=== PATIENT | male | born 1995 | race Caucasian/White ===

== ENCOUNTER 2023-04-09 08:44 | Inpatient (IN) | payer MEDICAID, SELFPAY ==
[2023-04-09] VITALS (9 sets, daily range): BP systolic 104–136; BP diastolic 64–105; PULSE 49–82; RESP 12–20; TEMP 35.4–37.2; O2SAT 92–100; BMI 22.4
--- NOTE | 2023-04-09 08:54 | W.ED.GENAD ---
Discharge Plan Disposition Patient Disposition: Admit to [facility] Discharge Details Chief Complaint: Cellulitis Clinical Impression: Thrombophlebitis arm, Intravenous drug abuse Admit Date/Time: 04/09/23 16:48 Admit Provider: Corina Hall Attending Provider: Corina Hall Primary Care Provider: Jenniffer,Local ED Provider: Shanelle Sadler Discharge Data Discharge Date/Time-TO BE ENTERED AT DEPARTURE: 04/09/23 14:57 Medical Decision Making Patient is a 27 year old male, brought in by correction and in their custody, with c/c of RUE erythema, warmth, concern for abscess. He has hx of IVDU, has used recently, went into custody 4 days ago. States that he has had several abscesses which he typically associated with missed IVDU injection. He states that he has opened these himself in the past. Currently on Subutex, needs his AM dosing. He reports that over the past 24 hours the area has grown significantly as has his pain. He has not had any fevers or chills. Denies any spreading to the anterior aspect of his chest, no shortness of breath or chest pain. On exam, patient appears nontoxic. His vital signs are stable. He has a large area of erythema in the anterior aspect of the Upper arm primarily centered over the bicep. Area is firm centrally had any concern for abscess. While he is tender away from this including medially as well as extending proximally, but erythema and fluctuance does not. No pain, erythema, induration or fluctuance on chest wall. Explored area with US, while abscess is visualized, as expected, the vein in this region appears to have clot burden as well. Concerned for septic thrombus. ED physician confirmed my concern on US. Will obtain labs, keep NPO, obtain CT and consult with surgery. Will begin on zosyn and vanco. Hydrating th epatient. Will give his typical dosing of Subutex, dose confirmed by RN at [facility]. Glucose is low at 66. Hesitant to give PO utnil we have plan after CT, will give 25mg IV dextrose FINDINGS: Bones/joints: There is a 2.5 cm x 2.1 cm x 1.7 cm rim-enhancing fluid density structure in the deep subcutaneous fat of the medial mid right upper arm (at the level of the mid humerus, measured on series 3, image 98 and coronal image 43). This is consistent with the clinically suspected abscess. There is thrombus within a superficial vein in the medial upper arm immediately adjacent to this collection (see series 3, images 85-113 and coronal images 39-46). A small amount of eccentric nonocclusive thrombus is seen proximally, as well. There is extensive subcutaneous fat stranding throughout the right upper arm, which can be seen with edema and/or cellulitis. Multiple mildly enlarged right axillary lymph nodes and enlarged lymph nodes in the right supraclavicular region and right antecubital fossa are nonspecific though suspected to be reactive. Soft tissues: No fractures or suspicious osseous lesions. Alignment in the right shoulder and right elbow are anatomic. IMPRESSION: 1. ? A 2.5 cm x 2.1 cm x 1.7 cm rim-enhancing fluid collection in the medial mid right upper arm is consistent with the clinically suspected abscess. 2. ? Superficial thrombophlebitis is adjacent and just proximal to the right upper arm abscess. 3. ? Extensive subcutaneous fat stranding throughout the right upper arm, which can be seen with cellulitis and/or edema. 4. ? Right axillary, right supraclavicular and right antecubital fossa lymphadenopathy is nonspecific though presumed to be reactive. WBC elevated, lactate WNL Consulted with surgery, plan is for removal in the OR. Surgeon at bedside, she discussed procedure with patient, obtained consent. Patient to OR with Dr. Hall with plan for admission for continued IV abx. [facility] General Date/Time Provider Initiated Documentation: 04/09/23 08:54. Limitations to Documentation: no limitations. Information obtained by: patient, RN/MD (call from RN at [facility]) and RN notes reviewed. History of Present Illness 27 year old M presents to the emergency department with the chief complaint of abscess right upper arm, described as severe and similar to prior episodes, with intensity rated at 8. Quality is described as aching and sharp, and is localized to the right and upper extremity. Patient reports no radiation. Patient started experiencing this day(s) and it has been constant. No relieving factors improve symptom(s), Movement worsens symptoms . Patient notes malaise; denies chest pain, cough, diaphoresis, fever/chills and shortness of breath. Patient did receive the following treatments prior to arrival, none Related Data Home Medications Medication Instructions Recorded Confirmed buprenorphine HCl 8 mg sublingual 16 mg sublingual DAILY 04/09/23 04/09/23 tablet Allergies Allergy/AdvReac Type Severity Reaction Status Date / Time vancomycin Allergy Intermediate rash Verified 04/10/23 14:51 Review of Systems Constitutional Constitutional: Reports as per HPI, Denies chills and Denies fever(s) Cardiovascular Cardiovascular: Denies chest pain and Denies dyspnea Respiratory Respiratory: Denies cough, Denies pain on inspiration and Denies dyspnea Musculoskeletal Musculoskeletal: Reports as per HPI Integumentary/Breasts Skin/Breast: Reports as per HPI Neurologic Neurologic: Reports as per HPI, Denies sensory deficit and Denies paresthesias PFSH All Active Problems (Updated 04/11/23 @ 09:39 by SHAHEED Armendariz) Smoker (Acute) Intravenous drug abuse (Acute) Thrombophlebitis arm (Acute) Abscess of right upper extremity (Acute) Social History Smoking/Tobacco Use Status: Former Tobacco Use Smoking risk assessment performed?: Yes Substance use type: IV drugs Details: last use 6 days ago - fentanyl Housing: other Exam Const General: cooperative, healthy appearing, comfortable, no acute distress and well developed Nutritional Appearance: average body habitus and well nourished Orientation: alert and awake Neck Neck: normal visual inspection and no lymphadenopathy Chest Chest: normal inspection of the chest, normal palpation of entire chest wall, no crepitus and no tenderness Resp Effort & Inspection: normal respiratory effort, able to speak in complete sentences and no respiratory distress Auscultation: clear to auscultation bilaterally Cardio Rate: regular rate Rhythm: regular rhythm Heart Sounds: S1 normal and S2 normal Skin General skin exam: erythema and induration Neuro General: patient alert and patient awake Cognition: normal cognition Speech: speech normal Gait: normal gait Sensory Exam: no sensory deficits noted Extrem Shoulder/upper arm images: 1. Area of erythema. Centrally, area is fluctuant with surrounding induration. While the erythema is confined with no streaking, the area around this is tender to palpation. No palpable lymphadenopathy. 2+ distal pulses. Sensation intact. No open area or discharge.
[2023-04-09 09:54] LABS: Lactate 1.4 mmol/L (0.6-1.4)
[2023-04-09 09:56] LABS: Abs Immature Grans 0.15 10^3/uL (0.0-0.06); Absolute Basophil Count 0.09 10^3/uL (0.0-0.2); Absolute Eosinophil Count 0.42 10^3/uL (0.0-0.7); Absolute Lymphocyte Count 1.75 10^3/uL (1.2-3.4); Absolute Monocyte Count 1.19 10^3/uL (0.1-0.8); Absolute Neutrophil Count 13.86 10^3/uL (1.2-6.7); Basophils % 0.5; Eosinophils % 2.4; HCT 45.3 % (40.0-50.0); HGB 14.2 g/dL (13.5-17.5); Immature Grans % 0.9; MCHC 31.3 % (32.0-36.0); MCV 86 fL (80-95); MPV 10.1 fL (8.0-11.0); Monocytes % 6.8; Neutrophils % 79.4; Platelet Count 330 10^3/uL (130-400); RBC 5.26 10^6/uL (4.36-5.78); RDW 13.7 % (11.8-14.1); RDW-SD 43.7 fL; WBC 17.46 10^3/uL (4.4-10.8)
[2023-04-09] MEDS: ACETAMINOPHEN 1,000 MG/100 ML BTL 400 MG IVPB (09:57)
[2023-04-09] MEDS: Lactated Ringers 1,000 ML 1000 ML IV (09:57)
[2023-04-09 10:24] LABS: ALT 14 U/L (16-63); AST 9 U/L (15-37); Alkaline Phosphatase 78 U/L (46-116); Anion Gap 3.5 mmol/L (3-11); BUN 13 mg/dL (7-18); Bilirubin, Total 0.4 mg/dL (0.2-1.0); CO2 35.5 mmol/L (21.0-32.0); Calcium 9.2 mg/dL (8.5-10.1); Chloride 102 mmol/L (98-107); Estimated GFR 105.79 (mL/min/1.73m2); Glucose 66 mg/dL (74-106); Magnesium 1.8 mg/dL (1.8-2.4); Potassium 4.1 mmol/L (3.5-5.1); Sodium 141 mmol/L (136-145); Total Protein 7.2 g/dL (6.4-8.2)
[2023-04-09] MEDS: Omnipaque 350 MG/ML 100 ML BTL IJ (10:49)
[2023-04-09] MEDS: Dextrose 50%-Water 25 GM/50 ML SYR IVP (10:55)
[2023-04-09] MEDS: Normal Saline - Diluent 50 ML VIAL IJ (10:56)
[2023-04-09] MEDS: PIPERACILLIN/TAZO 3.375 GM in Normal Saline 50 ML IVPB ×3 (11:00→23:17)
--- NOTE | 2023-04-09 11:05 | DI.CT_ITS ---
Exam(s) CT UPPER EXTREMITY RT W EXAM: CT UPPER EXTREMITY RT W CLINICAL HISTORY: abscess right upper arm TECHNIQUE: Imaging Protocol: Axial computed tomography images with coronal and sagittal reformatted images were created and reviewed. CONTRAST MATERIAL: Intravenous: Omnipaque 350 Contrast volume:structured data in ml Contrast route:I V - Oral: yes / no COMPARISON: No exams were available for comparison FINDINGS: SOFT TISSUES: There is a peripherally enhancing abnormal fluid collection in the anterior medial aspe ct of the upper arm consistent with abscess. This measures approximately 2.7 x 2 x 1.8 cm. There al so appears to be an element of superficial thrombophlebitis in adjacent veins. There is also extensi ve subcutaneous stranding throughout the upper arm. There are slightly enlarged lymph nodes in the i psilateral right axilla which are probably reactive. Bones: No fractures. No evidence of osteomyelitis. IMPRESSION: Findings are consistent with an abscess in the upper medial right arm and also appears to be adjacent superficial thrombophlebitis. There is also extensive subcutaneous fat stranding consistent with edema and cellulitis. Reactive ipsilateral axillary adenopathy noted. RADIATION DOSE DELIVERED: 453.47mGy.cm Total DLP DATA REPOSITORY: All CT scans at this facility are submitted to the National Radiology Data Registry (NRDR) Dose Index Registry (DIR) with the [employer] ([employer]). RADIATION OPTIMIZATION: All CT scans at this facility use at least one of these dose optimization te chniques: automated exposure control; mA and/or kV adjustment per patient size (includes targeted exa ms where dose is matched to clinical indication); or iterative reconstruction.
--- NOTE | 2023-04-09 11:34 | DI.VRAD_ITS ---
PROCEDURE INFORMATION: Exam: CT Right Upper Extremity With Contrast, Upper Arm Exam date and time: 04/09/2023 10:52 AM Age: 27 years old Clinical indication: Swelling; Upper limb; Upper arm; Patient HX: ? Abscess right arm, pain since yesterday. TECHNIQUE: Imaging protocol: Computed tomography of the right upper extremity with contrast. Exam focused on the upper arm. Radiation optimization: All CT scans at this facility use at least one of these dose optimization techniques: automated exposure control; mA and/or kV adjustment per patient size (includes targeted exams where dose is matched to clinical indication); or iterative reconstruction. Contrast material: OMNIPAQUE 350; Contrast volume: 100 ml; Contrast route: INTRAVENOUS (IV); COMPARISON: No relevant prior studies available. FINDINGS: Bones/joints: There is a 2.5 cm x 2.1 cm x 1.7 cm rim-enhancing fluid density structure in the deep subcutaneous fat of the medial mid right upper arm (at the level of the mid humerus, measured on series 3, image 98 and coronal image 43). This is consistent with the clinically suspected abscess. There is thrombus within a superficial vein in the medial upper arm immediately adjacent to this collection (see series 3, images 85-113 and coronal images 39-46). A small amount of eccentric nonocclusive thrombus is seen proximally, as well. There is extensive subcutaneous fat stranding throughout the right upper arm, which can be seen with edema and/or cellulitis. Multiple mildly enlarged right axillary lymph nodes and enlarged lymph nodes in the right supraclavicular region and right antecubital fossa are nonspecific though suspected to be reactive. Soft tissues: No fractures or suspicious osseous lesions. Alignment in the right shoulder and right elbow are anatomic. IMPRESSION: 1. A 2.5 cm x 2.1 cm x 1.7 cm rim-enhancing fluid collection in the medial mid right upper arm is consistent with the clinically suspected abscess. 2. Superficial thrombophlebitis is adjacent and just proximal to the right upper arm abscess. 3. Extensive subcutaneous fat stranding throughout the right upper arm, which can be seen with cellulitis and/or edema. 4. Right axillary, right supraclavicular and right antecubital fossa lymphadenopathy is nonspecific though presumed to be reactive. Dictated and Authenticated by: Marianne Portillo MD. Ordering:ANTHONY Timmons MD
[2023-04-09] MEDS: VANCOMYCIN/WATER (PEG) 1.5 GM/300 ML BAG IVPB (11:35)
[2023-04-09] MEDS: Normal Saline 1,000 ML 500 ML IV (12:44)
[2023-04-09 13:35] LABS: Procalcitonin < 0.1 ng/mL
--- NOTE | 2023-04-09 13:56 | W.PM.HP.N ---
Date of service: 04/09/23 Time of Service: 13:56 Assessment and Plan Assessment and plan (1) Abscess of right upper extremity: Status: Acute Assessment and plan: - Patient will need to go to the OR for incision and drainage of the abscess and excision of the vein. He will need to be in the hospital for several days for IV antibiotics and work-up for endocarditis. Risks include but not limited to: Bleeding, infection, pneumonia, blood clots, complication of anesthesia. There is risk of chronic pain/chronic numbness/scarring/loss of motor function/scarring. He may need further debridements and washouts. He will need to do packing and dressing changes. The wound will need to heal by secondary intent which can take weeks to months. He is at high risk for developing endocarditis. Blood cultures are pending. He has never had anesthesia before. He will be admitted postop for IV antibiotics and further work-up for endocarditis. Patient has also developed diffuse pruritus since he received his antibiotics. Most likely this is from the Vanco. (2) Thrombophlebitis arm: Status: Acute (3) Intravenous drug abuse: Status: Acute (4) Smoker: Status: Acute History of Present Illness Narrative: Eliazar Escalona is a 27-year-old white male seen at the request of Dr. Alejo ER regarding a right forearm abscess and thrombophlebitis. He has a history of IVDA. The last time he injected was 6 days ago per the patient. He has been in custody of [employer] for the last 4 days. He has been on Suboxone since he has been in [facility]. In the last 24 hours he has developed pain redness and obvious abscess in the right upper forearm. He was injecting in this arm. He denies there being a needle or any other foreign body in place. On POCUS exam there is a obvious abscess. The vein is clotted. And most likely infected. He denies a history of MRSA. He denies a history of prior infections. He complains of local pain in the area.. He is ever able to move his fingers without any motor deficits he has no numbness or tingling in his hands or fingers.. He denies any chest pain or shortness of breath. He denies any productive cough. He to the best of his knowledge she is HIV and hep C negative. He smokes a pack a day. He denies any other medical problems He has never had surgery or anesthesia in the past. Review of Systems All systems reviewed & are unremarkable except as noted in HPI and below PFSH All Active Problems (Updated 04/09/23 @ 13:57 by Corina Hall DO) Smoker (Acute) Intravenous drug abuse (Acute) Thrombophlebitis arm (Acute) Abscess of right upper extremity (Acute) Social History Smoking risk assessment performed?: No Substance use type: IV drugs Details: last use 6 days ago - fentanyl Housing: other Meds Allergies and Home Medications Home Medications Medication Instructions Recorded Confirmed Type buprenorphine HCl 8 mg sublingual 16 mg sublingual DAILY 04/09/23 04/09/23 History tablet Exam Const General: cooperative and anxious Nutritional Appearance: average body habitus Orientation: alert, awake and oriented x3 Other: PHYSICAL EXAM GENERAL APPEARANCE: Alert, healthy appearance, oriented, x 3,? in no acute distress HYDRATION: Well hydrated HEAD, EYES, EARS, NECK, THROAT: Head is normocephalic, pupils equal, round, reactive to light and accommodation, ocular movement intact, sclera clear and no jaundice. ?Dentition intact. No sore throat.? No jaw pain. No thrush LUNGS: normal respiration/normal chest excursion. ?Clear to auscultation bilaterally. ?No wheeze. ?HEART: Regular rate and rhythm. no murmurs EXTREMITY: No edema or cyanosis.? no leg pain, redness, swelling.? Right forearm: He has a large 3 x 3 inch area of induration and tenderness and edema on the upper outer mid forearm. CT shows a 3 x 3 inch abscess. Patient denies there being any foreign body in there. Ultrasound shows that the vein is clotted and most likely has thrombophlebitis he has track quinones and significant scarring on his arms from prior injecting. They were able to obtain IV access in the left arm. He also has scarring and looks like he is a cutter as well ABDOMEN: soft and non-tender to palpation.? Normal bowel sounds.? Results Labs 04/09/23 09:44 04/09/23 09:44 Labs: Laboratory Results - last 24 hr 04/09/23 04/09/23 04/09/23 09:44 09:44 09:44 WBC 17.46 H RBC 5.26 Hgb 14.2 Hct 45.3 MCV 86 MCH 27.0 MCHC 31.3 L RDW 13.7 Plt Count 330 MPV 10.1 Immature Gran % 0.9 Neutrophils % 79.4 Lymphocytes % 10.0 Monocytes % 6.8 Eosinophils % 2.4 Basophils % 0.5 Nucleated RBC % 0.0 Absolute Neutrophils 13.86 H Absolute Lymphocytes 1.75 Absolute Monocytes 1.19 H Absolute Eosinophils 0.42 Absolute Basophils 0.09 VBG Lactate 1.4 Sodium 141 Potassium 4.1 Chloride 102 Carbon Dioxide 35.5 H Anion Gap 3.5 BUN 13 Creatinine 1.0 Est GFR (CKD-EPI 2020) 105.79 Glucose 66 L Calcium 9.2 Magnesium 1.8 Total Bilirubin 0.4 AST 9 L ALT 14 L Alkaline Phosphatase 78 Total Protein 7.2 Albumin 3.0 L Procalcitonin 04/09/23 09:45 WBC RBC Hgb Hct MCV MCH MCHC RDW Plt Count MPV Immature Gran % Neutrophils % Lymphocytes % Monocytes % Eosinophils % Basophils % Nucleated RBC % Absolute Neutrophils Absolute Lymphocytes Absolute Monocytes Absolute Eosinophils Absolute Basophils VBG Lactate Sodium Potassium Chloride Carbon Dioxide Anion Gap BUN Creatinine Est GFR (CKD-EPI 2020) Glucose Calcium Magnesium Total Bilirubin AST ALT Alkaline Phosphatase Total Protein Albumin Procalcitonin < 0.1 Last Vital Signs Temp 37.2 C 04/09/23 08:52 Pulse 82 04/09/23 08:52 Resp 20 04/09/23 08:52 BP 122/80 04/09/23 08:52 Pulse Ox 92 04/09/23 08:52 Time Spent Time spent with Patient: >75 minutes Time was spent: preparing to see the patient(eg.review tests), obtaining and/or reviewing separately otained hiistory, ordering medications,tests, procedures, referring, communicating with other health patient centered care specialist, indepentently interpreting results, counseling the patient and care coordination
--- NOTE | 2023-04-09 14:18 | ANES.PREOP_ITS ---
General Info Date of Service Date Performed: 04/09/23 Height: 5 ft 11 in Weight: 73 kg Body Mass Index (BMI): 22.4 Meds Allergies and Home Medications Home Medication Medication Instructions Recorded buprenorphine HCl 8 mg sublingual 16 mg sublingual DAILY 04/09/23 tablet Current Visit Medications: Current Medications Generic Name Dose Route Start Last Admin Trade Name Richq PRN Reason Stop Dose Admin Diphenhydramine HCl 25 mg 04/09/23 14:07 Diphenhydramine 50 Mg/Ml Vial IVP 04/09/23 14:08 NOW ONE Sodium Chloride 1,000 mls @ 500 mls/hr 04/09/23 12:30 04/09/23 12:44 Saline 1000ml Bag IV 04/09/23 14:29 500 mls/hr BOLUS ONE Administration IV Miscellaneous Supplies 1 each 04/09/23 09:45 Iv Access-Emergency Dept IV DIRECTED RHONDA Iohexol 100 ml 04/09/23 11:00 04/09/23 10:49 Omnipaque 350 Mg/Ml 100 Ml Btl IJ 05/09/23 23:59 100 ml DIRECTED RHONDA Administration Sodium Chloride 0 ml 04/09/23 09:31 Normal Saline Flush 10 Ml Syr IVP PRN PRN Sodium Chloride 50 ml 04/09/23 11:00 04/09/23 10:56 Normal Saline - Diluent 50 Ml Vial IJ 50 ml .FOR DI USE RHONDA Administration PFSH Active Problems Active Problems: Problem Status Onset Code Smoker F17.200 Intravenous drug abuse F19.10 Thrombophlebitis arm I80.8 Abscess of right upper extremity L02.413 Substance Use Substance use type: IV drugs Details: last use 6 days ago - fentanyl Vital Signs and Lab Results Vital Signs Most Recent Vital Signs in EMR: Most Recent Vital Signs Temp Pulse Resp BP Pulse Ox 37.2 C 82 20 122/80 92 04/09/23 08:52 04/09/23 08:52 04/09/23 08:52 04/09/23 08:52 04/09/23 08:52 Lab Results 04/09/23 09:44 04/09/23 09:44 Blood Type / Crossmatch: No Data to Display Complete Blood Count: White Blood Count 17.46 10^3/uL (4.4-10.8) H 04/09/23 09:44 Red Blood Count 5.26 10^6/uL (4.36-5.78) 04/09/23 09:44 Hemoglobin 14.2 g/dL (13.5-17.5) 04/09/23 09:44 Hematocrit 45.3 % (40.0-50.0) 04/09/23 09:44 Platelet Count 330 10^3/uL (130-400) 04/09/23 09:44 Venous Blood Lactate 1.4 mmol/L (0.6-1.4) 04/09/23 09:44 Complete Metabolic Panel: Sodium 141 mmol/L (136-145) 04/09/23 09:44 Potassium 4.1 mmol/L (3.5-5.1) 04/09/23 09:44 Chloride 102 mmol/L (98-107) 04/09/23 09:44 Carbon Dioxide 35.5 mmol/L (21.0-32.0) H 04/09/23 09:44 BUN 13 mg/dL (7-18) 04/09/23 09:44 Creatinine 1.0 mg/dL (0.70-1.30) 04/09/23 09:44 Est GFR (CKD-EPI 2020) 105.79 (mL/min/1.73m2) 04/09/23 09:44 Magnesium 1.8 mg/dL (1.8-2.4) 04/09/23 09:44 Calcium 9.2 mg/dL (8.5-10.1) 04/09/23 09:44 Albumin 3.0 g/dL (3.4-5.0) L 04/09/23 09:44 Glucose 66 mg/dL (74-106) L 04/09/23 09:44 Liver Function Panel: Alanine Aminotransferase (ALT/SGPT) 14 U/L (16-63) L 04/09/23 0 9:44 Aspartate Amino Transf (AST/SGOT) 9 U/L (15-37) L 04/09/23 09:4 4 Coagulation Panel: No Data to Display Cardiac Panel: No Data to Display Arterial Blood Gas: No Data to Display Venous Blood Gas: No Data to Display Pancreas Panel: No Data to Display Thyroid Panel: No Data to Display Infectious Disease: HIV (1&2) Ag and Ab, 4th Generation Pending 04/09/23 09: 45 Hepatitis B Surface Antigen Pending 04/09/23 09:45 Hepatitis C Antibody Pending 04/09/23 09:45 Blood Cultures: No Data to Display Toxicology Panel: No Data to Display Anesthesia Assessment and Plan Anesthesia History Personal History: No History of Anesthesia Complications Family History: No Family History of Anesthesia Complications Exercise Tolerance Exercise Tolerance: Metabolic Equivalents>4 Pertinent Negatives Pertinent Negatives: No Major Cardiovascular Symptoms or Complaints, No Major Pulmonary Symptoms or Complaints and No History of CVA/TIA Cardiac & Pulmonary Exam Cardiac Exam: Normal S1/S2 Heart Sounds Pulmonary Exam: Clear Bilateral Breath Sounds Implantable Cardiac Device Does patient have a Pacemaker or an ICD?: No Airway Exam Known Difficult Airway: No Mallampati Class: 2 Mouth Opening: Normal (> 3cm) Thyromental Distance: Greater than 3 cm Neck Range of Motion: Full ROM Neck Circumference: Normal Teeth Condition: Normal Dentition ASA Classification ASA Score: ASA 2 Emergency Case?: Yes NPO Status NPO Status: NPO Clears >2 hours, Solids >8 hours Anesthesia Plan Resuscitation Status: Full Code Anesthesia Technique: General Anesthesia Airway Planned: Endotracheal Tube Monitors Used: Standard Monitors
[2023-04-09] MEDS: diphenhydrAMINE 50 MG/ML VIAL 25 MG IVP (14:44)
[2023-04-09] MEDS: Lactated Ringers 1,000 ML 30 ML IV (15:09)
[2023-04-09] MEDS: Bupivacaine LIPOSOME/PF 133 MG/10 ML VIAL IJ (15:46)
--- NOTE | 2023-04-09 15:56 | VEI_PTH ---
PATIENT: Eliazar Escalona LOC: [id number]#:[id number] AGE/SX: 27/M ROOM: MS.206 RE04/09/[address]: Corina Hall : 1995 BED: A DIS: 04/12/2023 SPEC #: [id number] RECD: 04/11/23 12:17 STATUS: SUSAN REQ #: [id number] YASMEEN: 04/09/23 15:[address]: Corina Hall DEPT: Surgical Specimen RECD BY: Radha Tavarez ENTERED: 04/11/23 12:21 SP TYPE: JOSH REEVES DR: No Local Tissues: 1 - VEINS OF UPPER EXTREMITY, NOS Procedures: GROSS AND MICRO LEVEL 3 Comments: [id number]
[2023-04-09] MEDS: Bupivacaine 0.25% Pres-Free 30 ML VIAL (15:59)
--- NOTE | 2023-04-09 16:22 | ROE_ITS ---
Date of service: 04/09/23 Time of Service: 16:22 Operative Note Operative Note DATE OF PROCEDURE: 04/09/23 PRE-OP DIAGNOSIS: right upper arm abscess and thrombophlebitis of C. vein POST-OP DIAGNOSIS: same SURGEON: Corina Hall BLOCK CHOPPER HAND: Arnold Jang ANESTHESIA TYPE: Local By Surgeon and General LMA/ETT Refer to Anesthesia Record ESTIMATED BLOOD LOSS: 20 PATHOLOGY: other COMPLICATIONS: None Patient was transported to: PACU Patient's condition: stable Procedure Description: Patient has a history of IVDA and is developed an abscess and thrombophlebitis of the right cephalic vein the midportion of the upper arm. He requires incision and drainage of the abscess and the infected vein and this area. Informed consent is obtained explaining risks and benefits of the procedure including not limited to: Bleeding, infection, pneumonia, blood clots, anesthesia chronic pain or numbness. Loss of motor control. Scarring, need to heal by secondary intent and dressing changes versus skin grafting need for further debridement and other on for told complications. The site is marked. Patient is brought to the operative room suite and placed in the supine position . Anesthesia is administered per the department of anesthesia. Patient had received preop antibiotics. Patient is prepped and draped in the usual sterile using a ChloraPrep scrub solution. A timeout is performed. 30cc of quarter percent Marcaine solution is used for local anesthetization. A 3 inch incision is made over the apex of the abscess. Cultures are taken. About 100 cc of purulent material is evacuated. Electrocautery was used to provide hemostasis. The cavity is about 3 x 3 x 1 inches. Saline is used to irrigate the cavity. And curette is used to remove all necrotic tissue. The cephalic vein is isolated and dissected up in the subcutaneous tissues. Clips are applied proximally and distally into all branches. The vein is then excised and sent for pathology. Gelfoam is used to aid in hemostasis. It is irrigated with 2 L of saline. There is no significant bleeding noted. Is then packed with wet-to-dry gauze. Sterile compression dressing is applied. Patient tolerated procedure well without complication and transferred to cover room stable condition. Corrections officers remain with the patient throughout the entirety of the procedure, his preop and postoperative states. We will plan on dressing change under anesthesia in a.m.
--- NOTE | 2023-04-09 16:23 | W.PM.PROGNOT ---
Date of Service Date of service: 04/09/23 Time of Service: 17:30 Assessment and Plan Assessment and plan (1) Smoker: Status: Acute (2) Intravenous drug abuse: Status: Acute (3) Thrombophlebitis arm: Status: Acute Assessment and plan: The patient is doing well post-op. Their pain is well controlled. They are having no nausea or vomiting. The pt is not having any chest pain or SOB, productive cough; no calf pain or swelling. The pt is making good urine. The pt pain is adequately controlled. The case was discussed with nursing and patient?s progress reviewed. All of the pt's home medications were addressed and adjusted accordingly for their oral intact status. HEENT: no jaundice. no eye pain/drainage/redness/swelling. Mild sore throat Cardio- NSR no chest pain, BP stable. Pulm: no sob or productive cough. no hemoptysis Incision- clean/dry. Dressing intact no excessive bleeding or drainage I discussed with the patient and/or there family about the findings in surgery and the pt's progress. We reviewed expectations for progress in the hospital; what the pt could expect for recovery time and length of stay. We discussed the importance of walking and pulmonary toilet to avoid blood clots and pneumonia. Continue current plans for pulmonary toilet, GI and DVT prophylaxis. We shall continue the current plan for pain management as it is at an appropriate level, and working well for the pt. Appropriate measures will be taken for constipation prevention, and this was also reviewed with the pt. The wound care plan was reviewed with nursing as well. We will plan on doing dressing change under anesthesia in the OR in the morning. I do not think patient would tolerate a bedside dressing change. Patient also has a reddened fluctuant area on the left biceps region as well. However once we removed the IV so that the fluid was not flowing through this area it looks better. I am hoping that this area will respond to antibiotics. If not then we may have to do a I&D on the site as well. see orders (4) Abscess of right upper extremity: Status: Acute Objective Last Vital Signs Temp 37.2 C 04/09/23 08:52 Pulse 82 04/09/23 08:52 Resp 20 04/09/23 08:52 BP 122/80 04/09/23 08:52 Pulse Ox 92 04/09/23 08:52 Laboratory Results - last 24 hr 04/09/23 04/09/23 04/09/23 09:44 09:44 09:44 WBC 17.46 H RBC 5.26 Hgb 14.2 Hct 45.3 MCV 86 MCH 27.0 MCHC 31.3 L RDW 13.7 Plt Count 330 MPV 10.1 Immature Gran % 0.9 Neutrophils % 79.4 Lymphocytes % 10.0 Monocytes % 6.8 Eosinophils % 2.4 Basophils % 0.5 Nucleated RBC % 0.0 Absolute Neutrophils 13.86 H Absolute Lymphocytes 1.75 Absolute Monocytes 1.19 H Absolute Eosinophils 0.42 Absolute Basophils 0.09 VBG Lactate 1.4 Sodium 141 Potassium 4.1 Chloride 102 Carbon Dioxide 35.5 H Anion Gap 3.5 BUN 13 Creatinine 1.0 Est GFR (CKD-EPI 2020) 105.79 Glucose 66 L Calcium 9.2 Magnesium 1.8 Total Bilirubin 0.4 AST 9 L ALT 14 L Alkaline Phosphatase 78 Total Protein 7.2 Albumin 3.0 L Procalcitonin 04/09/23 09:45 WBC RBC Hgb Hct MCV MCH MCHC RDW Plt Count MPV Immature Gran % Neutrophils % Lymphocytes % Monocytes % Eosinophils % Basophils % Nucleated RBC % Absolute Neutrophils Absolute Lymphocytes Absolute Monocytes Absolute Eosinophils Absolute Basophils VBG Lactate Sodium Potassium Chloride Carbon Dioxide Anion Gap BUN Creatinine Est GFR (CKD-EPI 2020) Glucose Calcium Magnesium Total Bilirubin AST ALT Alkaline Phosphatase Total Protein Albumin Procalcitonin < 0.1 Time Spent with Patient Time Spent with Patient: <25 minutes Time was spent: preparing to see the patient(eg.review tests), obtaining and/or reviewing separately otained hiistory, ordering medications,tests, procedures, referring, communicating with other health resident care assistant, indepentently interpreting results, counseling the patient and care coordination
--- NOTE | 2023-04-09 16:54 | W.ANESPOSTOP ---
Postoperative Evaluation Date, Time and Location Date Performed: 04/09/23 Time Performed: 16:47 Patient Location: PACU Vital Signs Most Recent Imported Vital Signs: Most Recent Vital Signs Temp Pulse Resp BP Pulse Ox 36.5 C 58 L 15 136/105 H 100 04/09/23 16:46 04/09/23 16:46 04/09/23 16:46 04/09/23 16:46 04/09/23 16:46 Pain Score Most Recent Pain Score: Most Recent Pain Score Pain Level 8 04/09/23 08:52 Assessment Mental Status: Awake (Alert & Oriented to Patient Baseline) Airway and Respiratory Function: Patent airway with normal (patient baseline) respiratory exam Cardiovascular Function: Hemodynamically Stable Hydration Status: Adequately Hydrated Nausea & Vomiting: No Nausea or Vomiting Pain: Pt. Denies Any Pain Peripheral Nerve Block: Patient did not receive a nerve block
[2023-04-09] MEDS: Acetaminophen 500 MG TAB 1000 MG PO ×2 (17:14→23:18)
[2023-04-09] MEDS: Enoxaparin 40 MG/0.4 ML SYR SC (17:15)
[2023-04-09] MEDS: Normal Saline 1,000 ML 100 ML IV (20:51)
[2023-04-10] MEDS: PIPERACILLIN/TAZO 3.375 GM in Normal Saline 50 ML IVPB ×3 (06:07→17:25)
[2023-04-10] MEDS: Acetaminophen 500 MG TAB 1000 MG PO ×3 (06:07→17:24)
[2023-04-10] MEDS: Normal Saline 1,000 ML 100 ML IV (06:47)
[2023-04-10 07:01] LABS: Abs Immature Grans 0.14 10^3/uL (0.0-0.06); Absolute Basophil Count 0.07 10^3/uL (0.0-0.2); Absolute Eosinophil Count 0.67 10^3/uL (0.0-0.7); Absolute Lymphocyte Count 1.91 10^3/uL (1.2-3.4); Absolute Monocyte Count 0.76 10^3/uL (0.1-0.8); Absolute Neutrophil Count 7.25 10^3/uL (1.2-6.7); Basophils % 0.6; Eosinophils % 6.2; HGB 13.1 g/dL (13.5-17.5); Immature Grans % 1.3; Lymphocytes % 17.7; MCH 26.8 pg (27.0-33.0); MCHC 31.2 % (32.0-36.0); MCV 86 fL (80-95); MPV 10.4 fL (8.0-11.0); Neutrophils % 67.2; Platelet Count 289 10^3/uL (130-400); RBC 4.88 10^6/uL (4.36-5.78); RDW 13.8 % (11.8-14.1); RDW-SD 43.3 fL
[2023-04-10 07:25] VITALS: BP 118/65; PULSE 52; RESP 16; TEMP 36.7; O2SAT 98
[2023-04-10] MEDS: Ketorolac 10 MG TAB PO ×3 (09:25→22:14)
--- NOTE | 2023-04-10 10:35 | INITIAL_ITS ---
Date of service: 04/10/23 Time of Service: 10:35 Care Management Initial Assmt Initial Assessment REASON FOR HOSPITALIZATION:: Abscess of Right Upper Extremity PREVIOUS FUNCTIONAL STATUS/SOCIAL/FAMILY SUPPORTS:: Eliazar is from [place], [place], and was homeless prior to being incarcerated at the [facility]. He is and has 4 children ranging in age from 1 1/2 to 12 years old. Eliazar underwent surgery yesterday for an abscess of his right upper arm. He will require several days of IV antibiotics and a work-up for endocarditis before he can be discharged back to the [facility]. Eliazar is independent at baseline. CURRENT FUNCTIONAL STATUS:: Eliazar is sitting up in bed when CM comes to meet with him. There are two [facility] guards in plain clothes present in his room. Eliazar shares he has a meeting scheduled with his installment account checker next week and inquires if the installment account checker can come to the hospital for the meeting. One of the [facility] guards interjects, stating that is not allowed. Has patient been provided with info about the portal/API?: No Did the patient sign up for the portal?: No CODE STATUS:: Full Code INSURANCE COVERAGE / FINANCIAL ISSUES:: [facility] CURRENT HOME/COMMUNITY SERVICES/EQUIPMENT:: None PRIMARY CARE PHYSICIAN:: Marj Hernandez DNP ([facility]) POTENTIAL DISCHARGE NEEDS:: Follow up appointments with [facility] medical staff and with [facility]. PATIENT/FAMILY EDUCATION NEEDS:: Review of discharge instructions including medications, limitations and follow up plan of care; discuss Ask Me [employer] and self management. ANTICIPATED BARRIERS TO DISCHARGE:: None. TRANSPORTATION:: Via facility van with [facility] staff. PLAN:: Eliazar will return to the [facility] when medically cleared by medical provider. He will follow up with [facility] medical staff, [facility] and plan of care as instructed. He will be transported back to the [facility] by [facility] staff via facility van when ready. CM will continue to follow. PFSH All Active Problems (Updated 04/09/23 @ 13:57 by Corina Hall DO) Smoker (Acute) Intravenous drug abuse (Acute) Thrombophlebitis arm (Acute) Abscess of right upper extremity (Acute) Social History Smoking/Tobacco Use Status: Former Tobacco Use Smoking risk assessment performed?: Yes Substance use type: IV drugs Details: last use 6 days ago - fentanyl Housing: other
--- NOTE | 2023-04-10 11:24 | ANES.PREOP_ITS ---
General Info Date of Service Date Performed: 04/10/23 Height: 5 ft 11 in Weight: 73 kg Body Mass Index (BMI): 22.4 Surgical Procedure: Operation Date: 04/09/23 14:25 Proposed Procedure Side Surgeon p Debridement Right Corina Hall, DO Actual Procedure Side Surgeon p Irrigation + Debridement of Right Upper Arm Abscess + Cephalic Vein Excision Right Corina Hall, Pre-Op Diagnosis Post-Op Diagnosis ABSCESS OF RIGHT UPPER ARM ABSCESS OF RIGHT UPPER ARM Operation Date: 04/10/23 09:05 Proposed Procedure Side Surgeon p Debridement Corina Hall DO Meds Allergies and Home Medications Allergies Allergy/AdvReac Type Severity Reaction Status Date / Time No Known Allergies Allergy Verified 04/09/23 14:58 Home Medication Medication Instructions Recorded buprenorphine HCl 8 mg sublingual 16 mg sublingual DAILY 04/09/23 tablet Current Visit Medications: Current Medications Generic Name Dose Route Start Last Admin Trade Name Freq PRN Reason Stop Dose Admin Acetaminophen 1,000 mg 04/10/23 00:00 04/10/23 06:07 Acetaminophen 500 Mg Tab PO 1,000 mg Q6H RHONDA Administration Buprenorphine HCl 16 mg 04/10/23 08:30 04/10/23 08:12 Buprenorphine 8 Mg Sublingual Tablet SL 16 mg DAILY RHONDA Administration Diphenhydramine HCl 25 mg 04/09/23 14:27 04/09/23 14:44 Diphenhydramine 50 Mg/Ml Vial IVP 25 mg Q6H PRN PRN Administration Abdominal Pain Enoxaparin Sodium 40 mg 04/09/23 16:00 04/09/23 17:15 Enoxaparin 40 Mg/0.4 Ml Syr SC 40 mg Q24H RHONDA Administration Hydromorphone HCl 0.5 mg 04/09/23 14:20 Hydromorphone 2 Mg/Ml Syr IVP Q2H PRN PRN Sodium Chloride 500 mls @ 0 mls/hr 04/09/23 14:20 Saline 500ml Bag IV PRN PRN As Directed Daptomycin 700 mg/ Sodium 50 mls @ 100 mls/hr 04/09/23 14:00 04/09/23 17:38 Chloride IVPB 05/09/23 13:59 Not Given Q24H RHONDA Sodium Chloride 1,000 mls @ 100 mls/hr 04/09/23 20:30 04/10/23 06:47 Saline 1000ml Bag IV 100 mls/hr INFUSION RHONDA Administration Piperacillin Sod/Tazobactam 50 mls @ 100 mls/hr 04/10/23 00:00 04/10/23 06:47 Sod 3.375 gm/ Sodium Chloride IVPB Infused Q6H RHONDA Infusion IV Miscellaneous Supplies 1 each 04/09/23 14:30 Iv Access IV DIRECTED RHONDA Ketorolac Tromethamine 10 mg 04/10/23 04:00 04/10/23 09:25 Ketorolac 10 Mg Tab PO 10 mg Q6H RHONDA Administration Ondansetron HCl 4 mg 04/09/23 14:20 Ondansetron 4 Mg/2 Ml Vial IVP Q4H PRN PRN Sodium Chloride 0 ml 04/09/23 09:31 Normal Saline Flush 10 Ml Syr IVP PRN PRN Trazodone HCl 100 mg 04/09/23 14:25 Trazodone 100 Mg Tab PO HS PRN PRN Sleep PFSH Active Problems Active Problems: Problem Status Onset Code Smoker F17.200 Intravenous drug abuse F19.10 Thrombophlebitis arm I80.8 Abscess of right upper extremity L02.413 Tobacco Smoking/Tobacco Use Status: Former Tobacco Use Substance Use Substance use type: IV drugs Details: last use 6 days ago - fentanyl Vital Signs and Lab Results Vital Signs Most Recent Vital Signs in EMR: Most Recent Vital Signs Temp Pulse Resp BP Pulse Ox 36.7 C 52 L 16 118/65 98 04/10/23 07:25 04/10/23 07:25 04/10/23 07:25 04/10/23 07:25 04/10/23 07:25 Lab Results 04/10/23 06:30 04/09/23 09:44 Blood Type / Crossmatch: No Data to Display Complete Blood Count: White Blood Count 10.80 10^3/uL (4.4-10.8) 04/10/23 06:30 Red Blood Count 4.88 10^6/uL (4.36-5.78) 04/10/23 06:30 Hemoglobin 13.1 g/dL (13.5-17.5) L 04/10/23 06:30 Hematocrit 42.0 % (40.0-50.0) 04/10/23 06:30 Platelet Count 289 10^3/uL (130-400) 04/10/23 06:30 Venous Blood Lactate 1.4 mmol/L (0.6-1.4) 04/09/23 09:44 Complete Metabolic Panel: Sodium 141 mmol/L (136-145) 04/09/23 09:44 Potassium 4.1 mmol/L (3.5-5.1) 04/09/23 09:44 Chloride 102 mmol/L (98-107) 04/09/23 09:44 Carbon Dioxide 35.5 mmol/L (21.0-32.0) H 04/09/23 09:44 BUN 13 mg/dL (7-18) 04/09/23 09:44 Creatinine 1.0 mg/dL (0.70-1.30) 04/09/23 09:44 Est GFR (CKD-EPI 2020) 105.79 (mL/min/1.73m2) 04/09/23 09:44 Magnesium 1.8 mg/dL (1.8-2.4) 04/09/23 09:44 Calcium 9.2 mg/dL (8.5-10.1) 04/09/23 09:44 Albumin 3.0 g/dL (3.4-5.0) L 04/09/23 09:44 Glucose 66 mg/dL (74-106) L 04/09/23 09:44 Liver Function Panel: Alanine Aminotransferase (ALT/SGPT) 14 U/L (16-63) L 04/09/23 0 9:44 Aspartate Amino Transf (AST/SGOT) 9 U/L (15-37) L 04/09/23 09:4 4 Coagulation Panel: No Data to Display Cardiac Panel: No Data to Display Arterial Blood Gas: No Data to Display Venous Blood Gas: No Data to Display Pancreas Panel: No Data to Display Thyroid Panel: No Data to Display Infectious Disease: HIV (1&2) Ag and Ab, 4th Generation Pending 04/09/23 09: 45 Hepatitis B Surface Antigen Pending 04/09/23 09:45 Hepatitis C Antibody Pending 04/09/23 09:45 Blood Cultures: No Data to Display Toxicology Panel: No Data to Display Anesthesia Assessment and Plan Anesthesia History Personal History: No History of Anesthesia Complications Family History: No Family History of Anesthesia Complications Exercise Tolerance Exercise Tolerance: Metabolic Equivalents>4 Pertinent Negatives Pertinent Negatives: No Major Cardiovascular Symptoms or Complaints and No Major Pulmonary Symptoms or Complaints Cardiac & Pulmonary Exam Cardiac Exam: Normal S1/S2 Heart Sounds Pulmonary Exam: Clear Bilateral Breath Sounds Implantable Cardiac Device Does patient have a Pacemaker or an ICD?: No Airway Exam Known Difficult Airway: No Mallampati Class: 2 Mouth Opening: Normal (> 3cm) Thyromental Distance: Greater than 3 cm Neck Range of Motion: Full ROM Neck Circumference: Normal Teeth Condition: Normal Dentition ASA Classification ASA Score: ASA 2 Emergency Case?: No NPO Status NPO Status: NPO Clears >2 hours, Solids >8 hours Anesthesia Plan Resuscitation Status: Full Code Anesthesia Technique: General Anesthesia Airway Planned: Natural Airway Monitors Used: Standard Monitors
[2023-04-10 11:26] VITALS: BMI 22.4
[2023-04-10] MEDS: Lactated Ringers 1,000 ML 30 ML IV (12:38)
--- NOTE | 2023-04-10 13:09 | PGE_ITS ---
Date of Service Date of service: 04/10/23 Time of Service: 13:10 Assessment and Plan Assessment and plan (1) Smoker: Status: Acute (2) Intravenous drug abuse: Status: Acute (3) Thrombophlebitis arm: Status: Acute Assessment and plan: No signs of an abscess or thrombophlebitis in the left arm. And dressing change under anesthesia today. Gram stain noted. Full cultures pending. (4) Abscess of right upper extremity: Status: Acute Subjective Subjective Interval history since last seen: Pt is doing well. no headaches. No CP or SOB. no productive cough. no dysuria. no leg pain or swelling. Exam Const Other: No thrush lungs are clear to auscultation Heart is regular rate and rhythm Abdomen is nontender The left wound on the biceps shows no redness or drainage. There is a small subcutaneous fluid collection. this requires drainage at this time. Objective Last Vital Signs Temp 36.7 C 04/10/23 07:25 Pulse 52 L 04/10/23 07:25 Resp 16 04/10/23 07:25 BP 118/65 04/10/23 07:25 Pulse Ox 98 04/10/23 07:25 Laboratory Results - last 24 hr 04/09/23 04/10/23 09:45 06:30 WBC 10.80 RBC 4.88 Hgb 13.1 L Hct 42.0 MCV 86 MCH 26.8 L MCHC 31.2 L RDW 13.8 Plt Count 289 MPV 10.4 Immature Gran % 1.3 Neutrophils % 67.2 Lymphocytes % 17.7 Monocytes % 7.0 Eosinophils % 6.2 Basophils % 0.6 Nucleated RBC % 0.0 Absolute Neutrophils 7.25 H Absolute Lymphocytes 1.91 Absolute Monocytes 0.76 Absolute Eosinophils 0.67 Absolute Basophils 0.07 Procalcitonin < 0.1 Time Spent with Patient Time Spent with Patient: <25 minutes Time was spent: preparing to see the patient(eg.review tests), obtaining and/or reviewing separately otained hiistory, ordering medications,tests, procedures, referring, communicating with other health pharmacy customer care specialist, indepentently interpreting results, counseling the patient and care coordination
--- NOTE | 2023-04-10 13:50 | W.PM.OP ---
Date of service: 04/10/23 Time of Service: 13:50 Operative Note Operative Note DATE OF PROCEDURE: 04/09/23 PRE-OP DIAGNOSIS: Cellulitis/abscess/thrombophlebitis secondary to IVDA POST-OP DIAGNOSIS: same PROCEDURE: Dressing change under anesthesia SURGEON: Corina Hall ANESTHESIA TYPE: General:No Airway Refer to Anesthesia Record ESTIMATED BLOOD LOSS: 0 PATHOLOGY: other COMPLICATIONS: None Patient was transported to: PACU Patient's condition: stable Procedure Description: Patient is brought to the operating room today for dressing change. Informed consent is obtained including risks and benefits of the procedure which is basically from the anesthetics. Patient is brought to the operative room suite. He stayed on a stretcher. Anesthesia was administered per the department of anesthesia. The timeout is performed. We will dressing material is removed. The wound is 3 inches long by an inch and a half wide by three quarters of an inch deep. The wound is clean. There is no granulation tissue yet. There is no necrotic tissue. There is no excessive bleeding. Wet-to-dry gauze dressing is done with sterile compression dressings. Patient tolerated the procedure and transferred to recovery room in stable condition. Corrections officers remain with the patient throughout the procedure.
[2023-04-10 14:04] VITALS: BP 104/63; PULSE 65; RESP 16; TEMP 35.6; O2SAT 99
--- NOTE | 2023-04-10 14:37 | W.ANESPOSTOP ---
Postoperative Evaluation Date, Time and Location Date Performed: 04/10/23 Time Performed: 14:04 Patient Location: Med/Surg Vital Signs Most Recent Imported Vital Signs: Most Recent Vital Signs Temp Pulse Resp BP Pulse Ox 35.6 C L 65 16 104/63 99 04/10/23 14:04 04/10/23 14:04 04/10/23 14:04 04/10/23 14:04 04/10/23 14:04 Most Recent Vital Signs Temp Pulse Resp BP Pulse Ox 36.5 C 58 L 15 136/105 H 100 04/09/23 16:46 04/09/23 16:46 04/09/23 16:46 04/09/23 16:46 04/09/23 16:46 Pain Score Most Recent Pain Score: Most Recent Pain Score Pain Level [Generalized] 0 04/10/23 07:30 Pain Level 0 04/10/23 14:04 Assessment Mental Status: Awake (Alert & Oriented to Patient Baseline) Airway and Respiratory Function: Patent airway with normal (patient baseline) respiratory exam Cardiovascular Function: Hemodynamically Stable Hydration Status: Adequately Hydrated Nausea & Vomiting: No Nausea or Vomiting Pain: Pt. Denies Any Pain Peripheral Nerve Block: Patient did not receive a nerve block
--- NOTE | 2023-04-10 14:53 | W.PM.OP ---
Operative Note Operative Note DATE OF PROCEDURE: 04/09/23 POST-OP DIAGNOSIS: same PROCEDURE: Dressing change under anesthesia Refer to Anesthesia Record ESTIMATED BLOOD LOSS: 0 PATHOLOGY: other Patient was transported to: PACU Patient's condition: stable Implants: Dressing change under anesthesia Procedure Description: Patient is here today for dressing change on this wound and asked to
[2023-04-10 15:04] VITALS: BP 115/64; PULSE 61; RESP 18; TEMP 36.3; O2SAT 100
[2023-04-10] MEDS: Methocarbamol 750 MG TAB PO ×2 (16:06→20:14)
[2023-04-10] MEDS: Gabapentin 300 MG CAP PO (20:14)
[2023-04-10] MEDS: diphenhydrAMINE 50 MG/ML VIAL 25 MG IVP (20:38)
[2023-04-11 00:14] VITALS: BP 104/64; PULSE 70; RESP 18; TEMP 36.4; O2SAT 95
[2023-04-11] MEDS: Ketorolac 10 MG TAB PO ×4 (03:52→21:31)
[2023-04-11] MEDS: PIPERACILLIN/TAZO 3.375 GM in Normal Saline 50 ML IVPB ×3 (05:38→12:04)
[2023-04-11] MEDS: Acetaminophen 500 MG TAB 1000 MG PO ×4 (05:38→23:08)
[2023-04-11 06:34] LABS: Abs Immature Grans 0.16 10^3/uL (0.0-0.06); Absolute Basophil Count 0.05 10^3/uL (0.0-0.2); Absolute Eosinophil Count 0.64 10^3/uL (0.0-0.7); Absolute Lymphocyte Count 3.06 10^3/uL (1.2-3.4); Absolute Monocyte Count 0.61 10^3/uL (0.1-0.8); Basophils % 0.6; Eosinophils % 7.8; Immature Grans % 1.9; Lymphocytes % 37.2; MCH 27.6 pg (27.0-33.0); MCHC 31.7 % (32.0-36.0); MCV 87 fL (80-95); MPV 10.6 fL (8.0-11.0); Monocytes % 7.4; Neutrophils % 45.1; Platelet Count 301 10^3/uL (130-400); RBC 4.71 10^6/uL (4.36-5.78); RDW 13.6 % (11.8-14.1); RDW-SD 43.8 fL; WBC 8.22 10^3/uL (4.4-10.8)
--- NOTE | 2023-04-11 07:00 | DI.US_ITS ---
APPROVED REPORT EXAM: Comprehensive 2D, Doppler, and color-flow Echocardiogram Patient Location: In-Patient Room/Bed: 206 Animal Daycare Provider: Rox Pyle RDCS (AE) Indications: Septic thrombophlebitis, Concern for endocarditis, Smoker Other Information Study Quality: Good. Technically limited study due to inability to position patient exam done suipine bedside. Conclusion Normal left ventricular wall thickness and chamber size. Ejection fraction is 65%. Wall motion is n ormal Normal right ventricular size and systolic function Both atria are normal in size There is no structural or hemodynamically significant valvular disease. No valvular vegetations are identified Wall motion Left Ventricle The left ventricle is normal size. The left ventricular systolic function is normal. The left ventric ular ejection fraction is within the normal range. There is normal left ventricular wall thickness. T here is normal LV segmental wall motion. There is no ventricular septal defect visualized. LVEF is 65 %. Right Ventricle The right ventricle is normal size. The right ventricular systolic function is normal. Atria The left atrium size is normal. The right atrium size is normal. The interatrial septum is intact wit h no evidence for an atrial septal defect. Aortic Valve The aortic valve is normal in structure. Aortic valve is trileaflet. There is no aortic valvular sten osis. No aortic regurgitation is present. Mitral Valve The mitral valve is normal in structure. No evidence of mitral valve stenosis. Trace mitral regurgita tion. Tricuspid Valve The tricuspid valve is normal in structure. There is no tricuspid valve stenosis. Trace tricuspid reg urgitation. Unable to assess PA pressure. Pulmonic Valve The pulmonary valve is normal in structure. There is no pulmonic valvular stenosis. Trace pulmonic re gurgitation. Great Vessels The aortic root is normal in size. The ascending aorta is normal in size. Aortic arch is normal in ca liber. IVC is normal in size and collapses >50% with inspiration. Pericardium There is no pericardial effusion. 2D Dimensions IVSD d PLAX 0.90 cm M: 0.6-1.2 LVPW d PLAX 0.87 cm M: 0.6 - 1.2 LVID d PLAX 5.64 cm M: 4.2 - 5.8 LVDs 3.60 cm M: 2.5 - 4.0 Ao Root d 3.04 cm M: 3.1 - 3.7 RA Area A4C 16.25 cm2 Ao Asc Diam d 2.72 cm M: 2.6 - 3.4 LV EF Teichholz 64.7 % FS 35.80 % M-Mode TAPSE 3.72 cm (M/F) >1.7 LV Diastology MV E' medial 0.190 (>0.07 m/s) E/A Ratio 1.4 LV E/e MED 4.82 (<14) MV E Vmax 0.92 (0.4-1.3 m/s) MV E' lateral 0.247 (>0.1 m/s) MV A Vmax 0.65 (0.4-1.3 m/s) LV E/e LAT 3.72 (<14) MV E/E' medial 4.82 MV E/E' lateral 3.72 MV (E/E' average) 4.20 Aortic Valve LVOT Vmax 1.26 m/s AoV Area Vmax 2.82 cm2 LVOT Peak Grad 6.4 mmHg LVOT Mean Grad 3.6 mmHg LVOT Diam s 2.00 cm AoV Vmax 1.47 m/s Velocity Ratio 0.86 AoV Peak Grad 8.7 mmHg LVOT SV 81.32 mL AoV Mean Grad 4.5 mmHg AoV Area VTI 2.73 cm2 Mitral Valve MV DT 318 (160-240 msec) MV Vmax TIPS 0.94 m/s MV Mean Grad 1.8 (<2mmHg) MV VTI 0.222 m Pulmonary Valve PV Mean Grad 4.0 mmHg RVOT Peak Gr. 2.64 mmHg RVOT Mean Gr. 1.35 mmHg RVOT VTI 0.189 m RVOT Vmax 0.81 m/s
[2023-04-11] MEDS: diphenhydrAMINE 50 MG/ML VIAL 25 MG IVP ×3 (07:55→21:32)
[2023-04-11] MEDS: Methocarbamol 750 MG TAB PO ×4 (07:55→20:12)
[2023-04-11] MEDS: Gabapentin 300 MG CAP PO ×3 (07:55→20:11)
--- NOTE | 2023-04-11 08:37 | CMPROGNOTE_ITS ---
Date of service: 04/11/23 Time of Service: 08:38 Care Management Progress Note Progress Note Text Progress Note Text: S/O: Eliazar remains inpatient at this time. He is being closely monitored, correctional staff remain at bedside. CM continues to follow. A: 27 year old male admitted to [facility] 04/09/23 for Abscess of right upper extremity P: Eliazar will return to the [facility] or [place] (L/T IVABX) when medically cleared by medical provider.? He will follow up with [facility] medical staff, [facility] and plan of care as instructed.? He will be [facility] back to [facility] by [facility] staff via facility van when ready.? CM will continue to follow.
--- NOTE | 2023-04-11 08:37 | PDOC.CMPRO ---
Date of service: 04/11/23 Time of Service: 08:38 Care Management Progress Note Progress Note Text Progress Note Text: S/O: Eliazar remains inpatient at this time. He is being closely monitored, correctional staff remain at bedside. CM continues to follow. A: 27 year old male admitted to [facility] 04/09/23 for Abscess of right upper extremity P: Eliazar will return to the [facility] or [place] (L/T IVABX) when medically cleared by medical provider.? He will follow up with [facility] medical staff, [facility] and plan of care as instructed.? He will be transported back to the [facility] by [facility] staff via facility van when ready.? CM will continue to follow.
[2023-04-11 10:09] LABS: HIV-1/2 Ag & Ab Screen Negative (Negative)
--- NOTE | 2023-04-11 10:35 | W.PM.PROGNOT ---
Date of Service Date of service: 04/11/23 Time of Service: 10:35 Assessment and Plan Assessment and plan (1) Thrombophlebitis arm: Status: Acute Assessment and plan: The echocardiogram today is for negative for endocarditis. Additionally, the wound looks very clean, and the surrounding tissues appear to be healing nicely. I will switch over the intravenous antibiotics to an enteral regimen today, we will repeat the CBC and examine the wound 1 more time tomorrow. Assuming that looks good. I will probably be okay to discharge. Subjective Subjective Interval history since last seen: Eliazar says he is feeling okay today. His pain is controlled. He has been eating and drinking without any issue. He denies any subjective fevers or other complaints. Exam Skin Other: I removed all the old packing. The wound bed is clean and there is no purulence. There is no surrounding erythema. There is some tenderness around the excision site. Objective Last Vital Signs Temp 97.5 F L 04/11/23 00:14 Pulse 70 04/11/23 00:14 Resp 18 04/11/23 00:14 BP 104/64 04/11/23 00:14 Pulse Ox 95 04/11/23 00:14 Laboratory Results - last 24 hr 04/11/23 06:00 WBC 8.22 RBC 4.71 Hgb 13.0 L Hct 41.0 MCV 87 MCH 27.6 MCHC 31.7 L RDW 13.6 Plt Count 301 MPV 10.6 Immature Gran % 1.9 Neutrophils % 45.1 Lymphocytes % 37.2 Monocytes % 7.4 Eosinophils % 7.8 Basophils % 0.6 Nucleated RBC % 0.0 Absolute Neutrophils 3.70 Absolute Lymphocytes 3.06 Absolute Monocytes 0.61 Absolute Eosinophils 0.64 Absolute Basophils 0.05 Time Spent with Patient Time Spent with Patient: <25 minutes Time was spent: preparing to see the patient(eg.review tests), counseling the patient and care coordination
[2023-04-11 10:40] VITALS: BP 99/50; PULSE 65; TEMP 36.2; O2SAT 98
[2023-04-11 11:59] LABS: Hepatitis A Antibody IgM Negative (Negative); Hepatitis B Core Antibody Negative (Negative); Hepatitis B surface Ag Negative (Negative); Hepatitis C Ab w Rflx HCV PCR Reactive (Negative)
[2023-04-11 14:44] VITALS: BP 121/64; PULSE 70; TEMP 35.9; O2SAT 98
[2023-04-11] MEDS: Docusate Sodium 100 MG CAP PO (16:53)
[2023-04-11] MEDS: Normal Saline Flush 10 ML SYR IVP (16:54)
[2023-04-11] MEDS: Psyllium PKT 1 EACH PO (20:11)
[2023-04-11] MEDS: Sulfameth/Trimeth DS TAB 1 TAB PO (20:12)
[2023-04-11 22:54] VITALS: BP 123/65; PULSE 74; RESP 16; TEMP 36.4; O2SAT 95
[2023-04-12] MEDS: Ketorolac 10 MG TAB PO ×2 (03:39→09:01)
[2023-04-12] MEDS: Acetaminophen 500 MG TAB 1000 MG PO ×2 (05:50→11:16)
[2023-04-12 07:31] VITALS: BP 126/57; PULSE 55; RESP 16; TEMP 36.4; O2SAT 98
[2023-04-12] MEDS: Gabapentin 300 MG CAP PO ×2 (07:43→13:21)
[2023-04-12] MEDS: Sulfameth/Trimeth DS TAB 1 TAB PO (07:43)
[2023-04-12] MEDS: Methocarbamol 750 MG TAB PO ×2 (07:43→11:16)
[2023-04-12 09:17] LABS: Abs Immature Grans 0.23 10^3/uL (0.0-0.06); Absolute Basophil Count 0.07 10^3/uL (0.0-0.2); Absolute Eosinophil Count 0.59 10^3/uL (0.0-0.7); Absolute Lymphocyte Count 2.32 10^3/uL (1.2-3.4); Absolute Monocyte Count 0.44 10^3/uL (0.1-0.8); Absolute Neutrophil Count 4.96 10^3/uL (1.2-6.7); Basophils % 0.8; Eosinophils % 6.9; HCT 42.4 % (40.0-50.0); HGB 13.1 g/dL (13.5-17.5); Immature Grans % 2.7; Lymphocytes % 26.9; MCH 27.1 pg (27.0-33.0); MCHC 30.9 % (32.0-36.0); MCV 88 fL (80-95); MPV 10.2 fL (8.0-11.0); Monocytes % 5.1; Neutrophils % 57.6; Platelet Count 321 10^3/uL (130-400); RBC 4.83 10^6/uL (4.36-5.78); RDW 13.6 % (11.8-14.1); RDW-SD 43.9 fL; WBC 8.61 10^3/uL (4.4-10.8)
[2023-04-12] MEDS: diphenhydrAMINE 25 MG CAP PO (11:16)
--- NOTE | 2023-04-12 12:36 | W.PM.DS.N ---
Date of service: 04/12/23 Time of Service: 12:36 DS: Diagnosis Discharge Diagnosis (1) Thrombophlebitis arm: Status: Acute (2) Smoker: Status: Acute (3) Intravenous drug abuse: Status: Acute (4) Abscess of right upper extremity: Status: Acute Discharge Plan Disposition Patient Disposition: [facility] Condition: Improving Discharge Details Reason For Visit: Right Arm Abscess/Thombophlebitis from IVDA Admit Date/Time: 04/09/23 14:20 Admit Provider: Corina Hall Attending Provider: Corina Hall Primary Care Provider: JennifferJackson Hospital Course Hospital Course: Patient was admitted on 04/09 through the ED from [facility] He has a history of IVDA. He has developed an abscess and thrombophlebitis in his right cephalic vein underwent incision and debridement and excision of the vein. cultures show that it was MSSA. The white count is normal his incision is clean dry and intact. He is going to need to do wet-to-dry dressing changes daily. Will be discharged on Keflex. He also has a pruritic rash on his lower remedies and hand. I think the rash is mostly from excoriation. I think nephritis is from Subutex that he is on it started prior to being in the hospital. He will follow-up in surgery clinic next week.. He will need daily wet-to-dry dressing changes. See orders and discharge summary. Patient is remanded to custody of [facility] Home Meds and New Rx's Prescriptions: New ibuprofen 800 mg tablet 800 mg PO Q8H PRNQty: 30 2RF Rx Instructions: take w/ food acetaminophen [Tylenol Extra Strength] 500 mg tablet 1,000 mg PO Q6H PRN (Reason: pain) Qty: 30 0RF hydrocortisone 1 % cream 1 applic topical TID 10 Days Qty: 453.6 0RF cephalexin 500 mg capsule 500 mg PO QID 4 Days Qty: 16 0RF diphenhydramine HCl [Benadryl Allergy] 25 mg tablet 25 mg PO QID PRN (Reason: itching) Qty: 60 0RF Continued buprenorphine HCl 8 mg Tablet, Sublingual 16 mg SUBLINGUAL DAILY Discharge Instructions Additional Instructions: Keep an ice bag on the incision. 20 minutes on and 20 minutes off. Ice keeps the swelling down and swelling causes pain. Make sure you wrap the ice pack in a towel and don't apply directly to the skin. -If you have aguilar or sutures in place, they will be removed at your clinic appointment in 7-10 days. [facility] Surgery Clinic: [phone] F/u in surgery clinic -Follow-up surgery clinic in one weeks time -regular diet -pain meds are very constipating: if you do not move your bowels daily take a dose of OTC Miralax -Cover wound to shower -wet to dry dressing changes daily - You may find that your appetite is smaller. Eat 3-6 small meals throughout the day. It is important to drink lots of water after surgery, 6-10 glasses a day. -If you were given an incentive spirometry (breathing analytic programmer?), continue to do this 10x/hour while awake. -We do want you up walking, at least 5-6 times per day. This is very important to prevent pneumonia and blood clots. You can climb stairs, take them slowly. -No lifting over 5 pounds w/ right arm. -You may find that you are very tired after surgery- this is normal. -please do not smoke for a minimum of 72 hours after surgery. Wet-to-dry dressing changes Your health care provider has covered your wound with a wet-to-dry dressing. With this type of dressing, a wet (or moist) gauze dressing is put on your wound and allowed to dry. Wound drainage and tissue can be removed when you take off the old dressing. Follow any instructions you are given on how to change the dressing. Use this sheet as a reminder. What to Expect at Home Your provider will tell you how often you should change your dressing at home. As the wound heals, you should not need as much gauze or packing gauze. Removing the Old Dressing Follow these steps to remove your dressing: ? Wash your hands thoroughly with soap and warm water before and after each dressing change. Remove the old dressing. If it is sticking to your skin, wet it with warm water to loosen it. ? Remove the gauze pads or packing tape from inside your wound. ? Changing Your Dressing Follow these steps to put a new dressing on: ? Place the gauze pads or packing tape in your wound. Carefully fill in the wound and any spaces under the skin.? Use a cotton tip applicator to gently push the packing material into the wound. ? Cover the wet gauze or packing tape with a large dry dressing pad. Use tape or rolled gauze to hold this dressing in place. ? Wash your hands again when you are finished. When to Call the Doctor Call your doctor if you have any of these changes around your wound: ? Worsening redness ? More pain ? Swelling ? Bleeding ? It is larger or deeper ? It looks dried out or dark ? The drainage is increasing ? The drainage has a bad smell Also call your doctor if: ? Your temperature is 100.5?F (38?C), or higher, for more than 4 hours ? Drainage is coming from or around the wound ? Drainage is not decreasing after 3 to 5 days ? Drainage is increasing ? Drainage becomes thick, brooks, yellow, or smells bad ? Stand Alone Forms: Nursing Discharge Form Activity:: see above Equipment/Supplies:: No Equipment Needed Diet:: As Tolerated DS: Summary Time Spent with Patient providing and/or coordinating discharge services: Greater than 30 minutes Status at Discharge Functional status at discharge: independent ambulation Overall status at discharge: patient is progressing back to baseline Mental Status: mental status grossly normal Speech and Movement: speech and movement normal Mood: congruent mood Affect: normal affect Exam Psych Mental Status: mental status grossly normal Speech and Movement: speech and movement normal Mood: congruent mood Affect: normal affect DS: Data Vitals/I&O Vitals and I&O: Vital Signs Temperature 36.4 C L 04/12/23 07:31 Temperature Source Tympanic 04/11/23 22:54 Pulse 55 L 04/12/23 07:31 Pulse Rhythm Regular 04/12/23 07:55 Respiratory Rate 16 04/12/23 07:31 Respiratory Effort Normal 04/12/23 07:55 Respiratory Depth Normal 04/12/23 07:55 Respiratory Pattern Normal 04/12/23 07:55 Blood Pressure 126/57 L 04/12/23 07:31 Pulse Oximetry 98 04/12/23 07:31 Respiratory End-tidal CO2 45 04/09/23 16:46 Oxygen Delivery Method Room Air 04/12/23 07:31 Oxygen Flow Rate 0 04/12/23 07:31 Pain Level 0 04/12/23 07:31 Comment pt back from PACU from cleaning of wound to upper right arm. 04/10/23 14:04 Intake & Output 04/11/23 04/12/23 04/12/23 23:59 11:59 23:59 Intake Total 60 / 170 Output Total 575 / 575 Balance 60 / 170 -575 / -575 Intake: IV 60 / 170 Output: Urine 575 / 575 Other: Urine Color Dark Nicolasa Urine Appearance Clear Urine Odor Normal Voiding Methods Urinal Data Completed and Pending Labs on day of discharge: Labs from last 24 hours 04/12/23 04/09/23 04/09/23 08:45 09:45 09:45 WBC 8.61 RBC 4.83 Hgb 13.1 L Hct 42.4 MCV 88 MCH 27.1 MCHC 30.9 L RDW 13.6 Plt Count 321 MPV 10.2 Immature Gran % 2.7 Neutrophils % 57.6 Lymphocytes % 26.9 Monocytes % 5.1 Eosinophils % 6.9 Basophils % 0.8 Nucleated RBC % 0.0 Absolute Neutrophils 4.96 Absolute Lymphocytes 2.32 Absolute Monocytes 0.44 Absolute Eosinophils 0.59 Absolute Basophils 0.07 Procalcitonin < 0.1 Hepatitis A IgM Ab Negative Hep Bs Antigen Negative Hep B Core Total Ab Negative Hepatitis C Antibody Reactive A HCV RNA Qual (PCR) Pending Hepatitis C RNA Quant Pending 04/09/23 15:35 Arm - Right Upper Anaerobic Culture - Pending Preliminary micro results at discharge 04/09/23 10:25 Blood Culture - Preliminary Blood NO GROWTH 72 HOURS 04/09/23 09:44 Blood Culture - Preliminary Blood NO GROWTH 72 HOURS 04/09/23 15:35 Wound Culture - Preliminary Arm - Right Upper Gram Positive Arpita,Mixed 04/09/23 15:35 Anaerobic Culture - Pending Arm - Right Upper PFSH All Active Problems (Updated 04/12/23 @ 13:52 by Corina Hall DO) Rash and nonspecific skin eruption (Acute) Smoker (Acute) Intravenous drug abuse (Acute) Thrombophlebitis arm (Acute) Abscess of right upper extremity (Acute) Surgical History (Updated 04/11/23 @ 11:56 by Tonja Velazquez) History of incision and drainage (~03/2023) abscess and thrombophlebitis of the right cephalic vein the midportion of the upper arm Social History Smoking/Tobacco Use Status: Former Tobacco Use Smoking risk assessment performed?: Yes Substance use type: IV drugs Details: last use 6 days ago - fentanyl Housing: other Time Spent with Patient Time Spent with Patient: <45 minutes Time was spent: preparing to see the patient(eg.review tests), obtaining and/or reviewing separately otained hiistory, ordering medications,tests, procedures, referring, communicating with other health career coach, indepentently interpreting results, counseling the patient and care coordination
--- NOTE | 2023-04-12 13:47 | W.PM.PROGNOT ---
Date of Service Date of service: 04/12/23 Time of Service: 13:47 Assessment and Plan Assessment and plan (1) Smoker: Status: Acute (2) Intravenous drug abuse: Status: Acute Assessment and plan: Patient is on Subutex. The rash started the second day he was in custody. I think this is more related Subutex and associated excoriation (3) Thrombophlebitis arm: Status: Acute (4) Abscess of right upper extremity: Status: Acute Assessment and plan: Discharge we will change antibiotic to Keflex in case this is from the Bactrim Wet-to-dry dressing changes daily Tylenol and ibuprofen for pain Hydrocortisone cream and Benadryl for itching and rash See discharge instructions (5) Rash and nonspecific skin eruption: Status: Acute Subjective Subjective Interval history since last seen: Pt is doing well. no headaches. No CP or SOB. no productive cough. no dysuria. no leg pain or swelling. Patient notes that he also has developed a rash that started on his legs and is also on left arm and his back. It started on his second day in the skilled nursing. It did not start while he was in the hospital. He definitely has some irritation from the handcuffs on the right wrist and ankle. There is also a significant amount of excoriation on his lower extremities. I think most likely this is from review Norpramin that he has been taking and not from any medication that we have been giving him. We will discharge Medrol and hydrocortisone cream Exam Narrative Exam Narrative: No thrush L; clear to station bilaterally. No cough heart is regular rate and rhythm. that he just would have to hang out for half an hour for an assessment right abdomen is soft and nontender and no diarrhea Use 5 mg for 1-6 wound: Is clean dry and intact. Minimal granulation tissue present. No exudate Objective Last Vital Signs Temp 36.4 C L 04/12/23 07:31 Pulse 55 L 04/12/23 07:31 Resp 16 04/12/23 07:31 BP 126/57 L 04/12/23 07:31 Pulse Ox 98 04/12/23 07:31 Laboratory Results - last 24 hr 04/12/23 08:45 WBC 8.61 RBC 4.83 Hgb 13.1 L Hct 42.4 MCV 88 MCH 27.1 MCHC 30.9 L RDW 13.6 Plt Count 321 MPV 10.2 Immature Gran % 2.7 Neutrophils % 57.6 Lymphocytes % 26.9 Monocytes % 5.1 Eosinophils % 6.9 Basophils % 0.8 Nucleated RBC % 0.0 Absolute Neutrophils 4.96 Absolute Lymphocytes 2.32 Absolute Monocytes 0.44 Absolute Eosinophils 0.59 Absolute Basophils 0.07 Time Spent with Patient Time Spent with Patient: 35-49 minutes Time was spent: preparing to see the patient(eg.review tests), obtaining and/or reviewing separately otained hiistory, ordering medications,tests, procedures, referring, communicating with other health zoo caretaker, indepentently interpreting results, counseling the patient and care coordination
--- NOTE | 2023-04-12 16:26 | CMDISCH_ITS ---
Date of service: 04/12/23 Time of Service: 16:26 LACE Index Scoring Tool Questions: Length of Stay (in days): 3 Was the patient admitted via the E.D.?: Yes E.D. Visits: 0 Answers: Total Score: 6 Risk of Readmission: Low Risk Care Management Discharge Plan Reason for Hospitalization: Abscess of Right Upper Extremity Discharge Plan: Eliazar will return to the [facility] or [place] (L/T IVABX) when medically cleared by medical provider. He will follow up with [facility] medical staff, and plan of care as instructed. He will be transported back to the [facility] by [facility] staff via facility van when ready.
[2023-04-13 11:57] LABS: HCV RNA Qualitative Undetected (Undetected)
== END 2023-04-12 14:28 | DRG 983 ==
LOC: ER 09:04 → MS 16:59 → ER 04-11 12:13 → SUR 04-11 12:13 → MS 04-11 12:13
PROVIDERS: Surgery; Admitting Provider Surgery; Emergency Provider Physician Assistant; Visit Provider Surgery
PROC: 05BD0ZZ Excision of Right Cephalic Vein, Open Approach (ICD-10-PCS; CPT 10060; principal; 2023-04-09 14:25)
PROC: 2W0 Placement, Anatomical Regions, Change (ICD-10-PCS; CPT 15852; principal; 2023-04-10 09:05)
DX: L02.413 Cutaneous abscess of right upper limb (principal); F19.10 Other psychoactive substance abuse, uncomplicated; I80.8 Phlebitis and thrombophlebitis of other sites; F17.210 Nicotine dependence, cigarettes, uncomplicated; R59.0 Localized enlarged lymph nodes; L29.9 Pruritus, unspecified; T36.8X5A Adverse effect of other systemic antibiotics, initial encounter; B95.61 Methicillin susceptible Staphylococcus aureus infection as the cause of diseases classified elsewhere; L27.0 Generalized skin eruption due to drugs and medicaments taken internally
CPT/HCPCS: 10060; 34490; 15852; 36415; 80053; 84145; 86704; 86709; 86803; 87040; 87077; 87340; 87389; 87522; 96365; 96366; 99285; J1650; 73201; 83605; 83735; 85025; 87070; 87075; 87205; 88304; 93306; 99284; J0131; J1200; J1885; J2250; J2405; J2543; J2704; J3490